=== PATIENT | female | born 1935 | race Caucasian/White ===

== ENCOUNTER 2016-09-01 12:55 | Observation (INO) | payer OTHER ==
[~2016-09-01 12:55] MED LIST: ACETAMINOP650 MG/SU1 RC; ACETAMINOPHEN PO; ACETAMINOPHEN325 MG PO; ALBUTEROL MININEB NEB; ALBUTEROL17 GM INH; ANTIVERT PO; ASPIRIN EC81 M1 PO; ASPIRIN81 M1 PO; AUGMENTIN PO; AZITHROMYCIN250 MG PO; BENZONATATE PO; BUMEX PO; BUMEX2 MG PO; CARTIA XT PO; CETIRIZINE HCL10 MG PO; COLACE PO; COUMADIN; COUMADIN PO; COUMADIN3 MG PO; COUMADIN4 MG PO; COUMADIN5 MG PO; COUMADIN6 MG PO; DARVOCET-N 1001 TAB PO; DIGEX CAPSULE1 CAP PO; DIGITEK PO; DIGOXIN125 MCG PO; DOK100 MG PO; EFFER-K 20 MEQ20 MEQ PO; FERRO-TIME325 MG PO; FERROUS SULFATE PO; GLYCOLAX14 EA PO; GUAIFENESIN LA600 M1 PO; HCTZ; HYDROCHLOROTHIA25 MG PO; HYDROCODON-ACE1 EAC7 PO; HYDROCODONE-APA1 T55 PO; IPRAT-ALBUT 0.5-3 ML IH; IRON SUPPLEMENT1 TAB PO; K-LOR HOSPITAL20 ME1 PO; KCL; KCL PO; KLOR-CON PO; LANOXIN; LANOXIN PO; LASIX; LASIX PO; LEVAQUIN PO; LIPITOR; LIPITOR PO; LIPITOR20 MG PO; LISINOPRIL2.5 MG PO; LOPRESSOR PO; LOPRESSOR100 MG PO; MAGNESIUM200 MG PO; MEDI-MECLIZINE25 M1 PO; METOPROLOL SUC100 MG PO; MILK OF MAGNESIA PO; NASONEX17 GM; NASONEX17 GM NS; NORCO 5/325 TAB1 TAB PO; NORVASC PO; OXYGEN; PHENERGAN PO; POTASSIUM CHLO10 ME1 PO; PRILOSEC PO; PRILOSEC20 M1 PO; PRILOSEC20 MG PO; PROTONIX PO; PROZAC PO; SERTRALINE HCL50 M1 PO; SERTRALINE HCL50 MG PO; SYMBICORT INH; TOPROL XL; TOPROL XL 50 MG50 M1 PO; TOPROL XL 50 MG50 MG PO; TOPROL XL PO; TYLENOL325 M1 PO; WARFARIN SODIUM2 M1 PO; Z-PAK; ZOLOFT50 MG PO; ZYRTEC; ZYRTEC PO
[2016-12-10] MEDS ORDERED: AMIODARONE HCL100 MG PO (00:20)
[2016-12-10] MEDS ORDERED: CYANOCOBAL1000 MCG/M IM (00:20)
[2016-12-10] MEDS ORDERED: METOPROLOL TAR100 MG PO (00:27)
[2016-12-10] MEDS ORDERED: CYANOCOBALAMIN (09:30)
[2016-12-10] MEDS ORDERED: ELIQUIS2.5 MG PO ×2 (12:05→21:38)
[2016-12-10] MEDS ORDERED: TYLENOL EXTRA500 M1 PO (15:18)
[2016-12-10] MEDS ORDERED: BUMEX1 MG PO (15:25)
== END 2016-09-02 08:14 | disposition home or self-care (01) ==
LOC: CSSDAY 12:55 → C2A 12:56
DX: N18.3 Chronic kidney disease, stage 3 (moderate) (principal); D63.1 Anemia in chronic kidney disease; K90.9 Intestinal malabsorption, unspecified
CPT/HCPCS: 36415; 36430; 86850; 86900; 86901; 86905; 86922; 96374; 96376; G0378; J1200; J1940; P9016

== ENCOUNTER → 2016-09-29 | Outpatient (CLI) | payer OTHER ==
[~2016-09-29] MED LIST changes: +AMIODARONE HCL100 MG PO; +AMIODARONE HCL200 MG PO; +AMIODARONE PO; +B-12 COMPL1000 MCG/1 IM; +BUMEX1 MG PO; +CYANOCOBAL1000 MCG/M IM; +CYANOCOBALAMIN; +DOCUSATE SODIU100 MG PO; +ELIQUIS2.5 MG PO; +FOLIC ACID1 MG PO; +HYDROCODON-ACE1 EAC9 PO; +K-DUR20 ME1 PO; +KEFLEX500 MG PO; +MAG-OX 400400 MG PO; +MAGNESIUM400 MG PO; +METOLAZONE2.5 MG PO; +METOPROLOL SUCC25 MG PO; +METOPROLOL TAR100 MG PO; +MUCINEX DM ER1 EACH PO; +NITROGLYGERIN0.4 MG SL; +NITROSTAT0.4 MG SL; +SINGULAIR PO; +TESSALON PERLE100 M1 PO; +TYLENOL EXTRA500 M1 PO; +ZOLOFT100 MG PO; +ZYRTEC10 M1 PO; +ZYRTEC10 M2 PO
== END | disposition home or self-care (01) ==
LOC: CLAB 11:48
DX: D64.9 Anemia, unspecified (principal)
CPT/HCPCS: 36415; 86850; 86870; 86880; 86885; 86886; 86900; 86901; 86905; 86922; 86970; 86976

== ENCOUNTER → 2016-09-30 | Outpatient (CLI) | payer OTHER | END | disposition home or self-care (01) | LOC: CSSDAY 08:11 | DX: N18.3 Chronic kidney disease, stage 3 (moderate) (principal); D63.1 Anemia in chronic kidney disease; K90.9 Intestinal malabsorption, unspecified | CPT/HCPCS: 36430; 86880; J1200; J1940; P9016 ==

== ENCOUNTER → 2016-10-27 | Outpatient (CLI) | payer OTHER | END | disposition home or self-care (01) | LOC: CLAB 12:43 | DX: D64.9 Anemia, unspecified (principal) | CPT/HCPCS: 36415; 86850; 86880; 86885; 86886; 86900; 86901; 86905; 86922; 86970; 86976 ==

== ENCOUNTER → 2016-10-28 | Outpatient (CLI) | payer OTHER | END | disposition home or self-care (01) | LOC: CLAB 08:00 → CSSDAY 08:30 | DX: D64.9 Anemia, unspecified (principal) | CPT/HCPCS: 36430; J1200; J1940; P9016 ==

== ENCOUNTER → 2016-12-01 | Outpatient (CLI) | payer OTHER | END | disposition home or self-care (01) | LOC: CLAB 12:35 | DX: D64.9 Anemia, unspecified (principal) | CPT/HCPCS: 36415; 86850; 86880; 86885; 86886; 86900; 86901; 86922; 86970; 86976 ==

== ENCOUNTER → 2016-12-02 | Outpatient (CLI) | payer OTHER | END | disposition home or self-care (01) | LOC: CSSDAY 08:00 | DX: D64.9 Anemia, unspecified (principal) | CPT/HCPCS: 36430; J1200; J1940; P9016 ==

== ENCOUNTER 2016-12-10 19:08 | Inpatient (IN) | payer OTHER ==
--- NOTE | ~2016-12-10 | CR72 ---
[facility] Service of [facility] & [facility] RADIOLOGY TEXT RESULTS PATIENT: ALVARO GUNN LOCATION: [facility] 574-01 : 34 UNIT #: [id number] AGE: [address]: Byron Holly MD SEX: F ORDER DR: [id number] [facility] [address] [place], [place] [address] [id number] I MR#: [id number] Acc #: [id number] NAME: ALVARO GUNN : 1935 SEX: F STUDY DATE/TIME: 12/15/2016 4:30 UNIT: [facility] ROOM: [facility] STUDY DESCRIPTION: CR Chest Single View Portable Attending Physician: Byron Holly M.D. Ordering Physician: Zion Mccartney M.D. Primary Care Physician: Estrellita Coker M.D. MEDICAL IMAGING REPORT This report is preliminary unless electronic signature is present EXAM Single view chest INDICATIONS Pulmonary embolus. Volume overload for 5 days. COPD. COMPARISON Single portable AP view of the chest compared with 12/14/2016. FINDINGS The right PICC remains in place. Heart and mediastinal contours are unchanged. Patient has prior heart valve replacements. There is interstitial edema and bilateral pleural effusions. These are unchanged. No pneumothorax. IMPRESSION No interval change. Dictated by... Umberto Zapata M.D. THIS IS AN ELECTRONICALLY VERIFIED REPORT Umberto Zapata M.D. at 12/15/2016 11:40 PM ANURADHA/millie TD: 12/15/2016 11:51 JOB #: [id number] MEDICAL IMAGING REPORT Page 1 of 1 COPY
--- NOTE | ~2016-12-10 | CO ---
Unit #: [id number] #: [id number] Patient: ALVARO GUNN [id number] [facility] [address] [place], [place] [address] [id number] I MR#: [id number] NAME: ALVARO GUNN ROOM: [facility] Age: 81 Sex: F Admission Date: 12/10/2016 : 1935 Attending Physician: Byron Holly M.D. Primary Care Physician: Estrellita Coker M.D. Consultation Date: 12/11/2016 CONSULTATION REPORT REASON FOR CONSULTATION CHF. HISTORY OF PRESENT ILLNESS The patient is an 81-year-old female who is known to Dr. Brandon. In July 2015 she had an EF of 55% to 60%, flattened septum and her right ventricle was dilated. Positive ring in the mitral position. Moderate TR with an RSVP of 30 to 40 mmHg. Her aortic valve was calcified with mild . Also in July of 2015 patient was diagnosed with afib and sick sinus syndrome and had a [employer] Neil single chamber permanent pacemaker placed. She is currently anticoagulated on Eliquis. In 2010 she had coronary artery disease with a history of a CABG, MATOS to LAD, SVG to PDA and mitral and tricuspid valve repair. In 2013 patient had a normal ejection fraction of 62%. Additional past medical history includes hypertension, hyperlipidemia, COPD with O2 dependency, AVMs with GI bleed, chronic kidney disease, gout, GERD and anemia with multiple blood transfusions. She is a nonsmoker. Yesterday patient presented for an outpatient colonoscopy. In the PACU she became very short of breath and hypoxic with an oxygenation of 83%. She was found to be volume overloaded. She was moved to the ER for admission. On workup she was found to have a BNP of 1702. Chest x-ray was consistent with pulmonary edema. Hemoglobin 7 and hematocrit 23. Patient and the patient's family report that she has had multiple blood transfusions since June of 2016. They report that she has had 17 transfusions. Cardiology has been consulted for congestive heart failure. Patient currently is on IV Bumex and receiving two units of packed red blood cells. Troponin is 0.04 and EKG shows an accelerated junctional rhythm. PAST MEDICAL HISTORY 1. Echo from July of 2015, EF 55% to 60% with flattened septum and dilated right ventricle. Positive ring in the mitral position. Moderate TR with an RSVP of 30 to 40 mmHg. Aortic valve is calcified with mild . 2. In July of 2015 she had a single chamber [employer]. Neil permanent pacemaker placed for sick sinus syndrome. 3. Coronary artery disease with a history of CABG in 2010, MATOS to LAD, SVG to PDA and mitral and tricuspid valve repair. 4. In 2013 normal stress test with an EF of 62%. 5. Hypertension. 6. Hyperlipidemia. 7. Obstructive sleep apnea. 8. COPD. Unit #: [id number] #: [id number] Patient: ALVARO GUNN 9. Chronic O2 dependency. 10. History of AVMs with GI bleed. 11. GERD. 12. Chronic kidney disease. 13. Gout. 14. She is a nonsmoker. 15. Anemia with multiple blood transfusions. PAST SURGICAL HISTORY 1. CABG. 2. Cardiac cath. 3. Gastric surgery. 4. Cholecystectomy. 5. Hysterectomy. 6. Bilateral total knee arthroplasty. 7. History of permanent pacemaker placement. 8. History of diagnostic thoracentesis. 9. History of tonsillectomy. ALLERGIES Morphine. HOME MEDICATIONS 1. Eliquis 2.5 mg p.o. b.i.d. 2. Hydrocodone and acetaminophen 5/325 mg one tab p.o. q.6 h. p.r.n. pain. 3. Metolazone 2.5 mg p.o. q.72 h. 4. Aspirin 81 mg p.o. daily. 5. Lipitor 20 mg p.o. q.h.s. 6. Tessalon perles 100 mg p.o. t.i.d. p.r.n. cough. 7. Bumex 2 mg p.o. b.i.d. 8. Zyrtec 10 mg p.o. daily. 9. Vitamin B12 IM injection monthly. 10. Colace 100 mg p.o. b.i.d. p.r.n. constipation. 11. Ferrous sulfate 325 mg p.o. b.i.d. 12. Folic acid 1 mg p.o. daily. 13. Magnesium 400 mg p.o. daily. 14. Metoprolol succinate 25 mg p.o. b.i.d. 15. Nasonex two sprays each naris daily. 16. Singulair 10 mg p.o. q.a.m. 17. Nitroglycerin 0.4 mg sublingual q.5 minutes p.r.n. chest pain. 18. Mucinex ER 300/30 one tab p.o. b.i.d. 19. Protonix 40 mg p.o. daily. 20. K-Dur 20 mEq p.o. b.i.d. 21. Zoloft 50 mg p.o. daily. FAMILY HISTORY Family history is positive for CT and hypertension. SOCIAL HISTORY Patent denies tobacco, alcohol or illicit drug abuse. REVIEW OF SYSTEMS A 10-point review of systems has been done and is otherwise negative except as indicated in the HPI. PHYSICAL EXAMINATION GENERAL: Patient is awake, alert, in no acute distress. Unit #: [id number] #: [id number] Patient: ALVARO GUNN VITAL SIGNS: Temperature 98 degrees Fahrenheit, heart rate 84, respirations 19, blood pressure 134/44. She is oxygenating 95%. HEENT: Head is atraumatic and normocephalic. Pupils equal, round and reactive. Extraocular movements are intact. No drainage from ears or nares. NECK: Supple. Trachea is midline. Normal carotid upstrokes. No thyromegaly or lymphadenopathy is appreciated. CHEST: Lungs have crackles bilaterally and no wheezes. CARDIOVASCULAR: S1, S2. Regular rate and rhythm. No murmurs, rubs or gallops appreciated. ABDOMEN: Soft, nontender, distended. Bowel sounds are positive in all four quadrants. SKIN: The skin appears to be warm, dry and intact without any unusual rashes or lesions. EXTREMITIES: No clubbing. Bilateral lower extremities show positive edema. NEUROLOGIC: Patient is alert and oriented x3. She is pleasant and conversant. No focal deficits. DIAGNOSTIC STUDIES IMAGING: Chest x-ray shows finding consistent with pulmonary edema. LABORATORY RESULTS: White blood cells 4.3, hemoglobin 7.1, hematocrit 23.9, platelets 103, sodium 139, potassium 3.6, chloride 16, CO2 33, BUN 33, creatinine 1.3, glucose 71, magnesium 2, cholesterol 102, triglycerides 73, LDL 58, HDL 29, troponin is less than 0.04. ASSESSMENT 1. Aofrb-ec-peijwnb diastolic congestive heart failure. 2. Volume overload. 3. Anemia requiring multiple blood transfusions. 4. Hypertension. 5. Hyperlipidemia. 6. Coronary artery disease with history of coronary artery bypass graft in 2010 with left internal mammary artery to left anterior descending, saphenous vein graft to posterior descending artery with mitral and tricuspid valve repair. 7. Hypertension. 8. Hyperlipidemia. 9. Chronic oxygen dependency with chronic obstructive pulmonary disease. PLAN At his time Anastasiia has been on hold secondary to the patient does need a colonoscopy. Her aspirin has also been discontinued. Will change Bumex to 2 mg IV b.i.d. starting in the morning. Patient is currently on Bumex IV q.8 h. She will need a BMP and mag in the morning. Will do strict Is and Os and daily weight on the patient. Will obtain a recent 2D echocardiogram and we will obtain a chest x-ray. Further recommendations will be per Dr. Day. Dictated by... Sade Trent A.P.R.N. for Nelson Day M.D. AM/cf Unit #: [id number] #: [id number] Patient: ALVARO GUNN TD: 12/11/2016 18:20 JOB #: [id number] CONSULTATION REPORT Page 1 of 1 X Sade Trent APRN CONSULTATION REPORT
--- NOTE | ~2016-12-10 | CR72 ---
[facility] A Service of [facility] RADIOLOGY TEXT RESULTS PATIENT: ALVARO GUNN LOCATION: [facility] 574-01 : 34 UNIT #: [id number] AGE: [address]: Byron Holly MD SEX: F ORDER DR: [id number] [facility] [address] [place], [place] [address] [id number] I MR#: [id number] Acc #: [id number] NAME: ALVARO GUNN : 1935 SEX: F STUDY DATE/TIME: 12/10/2016 19:37 UNIT: [facility] ROOM: [facility] STUDY DESCRIPTION: CR Chest Single View Portable Attending Physician: Byron Holly M.D. Ordering Physician: Ronnell Charles M.D. Primary Care Physician: Estrellita Coker M.D. MEDICAL IMAGING REPORT This report is preliminary unless electronic signature is present EXAM Portable AP view of the chest COMPARISON September 10, 2016, June 22, 2016 INDICATION 81-year-old female with dyspnea since yesterday. FINDINGS There are stable fractures of multiple superior sternotomy wires. There is no evidence of sternotomy dehiscence. Changes of CABG are noted. Cardiac valve replacements again noted, likely tricuspid and mitral. Left chest pacemaker device appears stable without evidence of complication. Stable marked cardiomegaly. There are increased bibasilar lung opacities with cephalization of pulmonary vasculature and diffuse interstitial and alveolar opacities that are increased throughout the lungs. Findings would seem to reflect pulmonary edema. There are small bilateral pleural effusions. No evidence of pneumothorax. IMPRESSION 1. Stable marked cardiomegaly with increased diffuse lung opacities favoring pulmonary edema. Correlation to exclude signs of pneumonia recommended. Small bilateral pleural effusions, left greater than right. 2. Changes of CABG and cardiac valve replacements, likely tricuspid and mitral. Dictated by... Aldo Garcia M.D. THIS IS AN ELECTRONICALLY VERIFIED REPORT [facility] A Service of [facility] & [facility] RADIOLOGY TEXT RESULTS PATIENT: ALVARO GUNN LOCATION: [facility] 574-01 : 34 UNIT #: [id number] AGE: [address]: Byron Holly MD SEX: F ORDER DR: Aldo Garcia M.D. at 12/12/2016 10:39 PM Black TD: 12/11/2016 10:22 JOB #: [id number] MEDICAL IMAGING REPORT Page 1 of 1 COPY
--- NOTE | ~2016-12-10 | CO ---
Unit #: [id number] #: [id number] Patient: ALVARO GUNN [id number] [address] [address] [id number] I MR#: [id number] NAME: ALVARO GUNN ROOM: 574 Age: 81 Sex: F Admission Date: 12/10/2016 : 1935 Attending Physician: Byron Holly M.D. Primary Care Physician: Estrellita Coker M.D. Consultation Date: 12/17/2016 CONSULTATION REPORT REASON FOR CONSULTATION Acute on chronic kidney disease, stage 3. HISTORY OF PRESENT ILLNESS The patient is an 81-year-old white female, with history of chronic kidney disease stage [address] Ac with a baseline creatinine of 1.1 with a history of congestive heart failure and sick sinus syndrome with history of chronic anemia requiring multiple blood transfusions this year. The patient was actually here for outpatient colonoscopy and she became short of breath. Since then, the colonoscopy has been put on hold, she has been treated for congestive heart failure. Cardiology has been following with increase in her diuretics. Currently, she denies any shortness of breath. Her labs were reviewed. Her creatinine is elevated at 1.8 today. PAST MEDICAL HISTORY Significant for CKD stage 3, congestive heart failure, anemia, sick sinus syndrome. PAST SURGICAL HISTORY Includes CABG, mitral valve repair, knee replacement, and pacemaker placement. FAMILY HISTORY Noncontributory. SOCIAL HISTORY No tobacco. No alcohol. MEDICATIONS Home medications are reviewed as well as inpatient medications, see current list. REVIEW OF SYSTEMS A 12-point review of systems currently complete and negative for everything except positive for edema. PHYSICAL EXAMINATION VITAL SIGNS: Blood pressure is 120/63, heart rate 71, respirations 16, temperature is 97.6. GENERAL: She is a well-nourished white female. HEENT: Shows no JVD. No LAD. CARDIOVASCULAR: Regular rate and rhythm without murmurs, rubs, or gallops. Unit #: [id number] #: [id number] Patient: ALVARO GUNN LUNGS: Clear to auscultation bilaterally. ABDOMEN: Soft, nontender, nondistended. EXTREMITIES: 2+ lower extremity edema. NEURO: Grossly intact. PSYCHIATRIC: She is alert and oriented x3. DIAGNOSTIC STUDIES LABORATORY RESULTS: Sodium of 139, potassium 4.3, chloride 88, bicarb 41, BUN 49, creatinine 1.8, calcium 8.9. White count is 3.8, hemoglobin 8.4, platelets are 108. ASSESSMENT AND PLAN 1. Acute on chronic kidney disease, stage 3 with baseline creatinine of 1.1 up to 1.8 today, also with metabolic alkalosis most likely acute renal failure due to over-diuresis. She has been on IV Bumex which she has been changed to p.o. Bumex today. She is still on Zaroxolyn. We will discontinue her Zaroxolyn. We will continue to monitor renal function. If it worsens, we need to discontinue diuretics altogether. 2. Congestive heart failure. Currently denies any shortness of breath. Lungs are clear. She does have some lower extremity edema which is likely chronic. We will monitor closely. 3. Anemia. Hemoglobin is low at 8.4. She was scheduled to have colonoscopy which is now on hold. We will continue to monitor. 4. Sick sinus syndrome, status post pacemaker placement. Cardiology is following. Dictated by... Haylee Mendez M.D. DANG/lexi TD: 12/20/2016 00:27 JOB #: [id number] CONSULTATION REPORT Page 1 of 1 X Haylee Mendez MD CONSULTATION REPORT
--- NOTE | ~2016-12-10 | CO ---
Unit #: [id number] #: [id number] Patient: ALVARO GUNN [id number] [address] [address] [id number] I MR#: [id number] NAME: ALVARO GUNN ROOM: 574 Age: 81 Sex: F Admission Date: 12/10/2016 : 1935 Attending Physician: Byron Holly M.D. Primary Care Physician: Estrellita Coker M.D. CONSULTATION REPORT REASON FOR CONSULTATION Respiratory failure. CHIEF COMPLAINT Shortness of breath. 81-year-old female with a past medical history of congestive heart failure, anemia, multiple transfusions, history of paroxysmal atrial fibrillation, status post permanent pacemaker, CABG, osteoarthritis, gastroesophageal reflux disease, anxiety/depression, presents with a complaint of outpatient colonoscopy and was hypoxic. I am seeing the patient at bedside. Currently on Oxymizer complaining of shortness of breath. Denies any chest pain. No nausea, vomiting, diarrhea. No other complaints. PAST MEDICAL HISTORY As described above. SOCIAL HISTORY Ex-smoker. No alcohol, no drug use. FAMILY HISTORY None as per record. SURGICAL HISTORY 1. CABG. 2. Cardiac cath. 3. Cholecystectomy. 4. Hysterectomy. 5. Multiple thoracenteses. 6. Tonsillectomy. 7. History of permanent pacemaker placement. MEDICATIONS 1. Eliquis. 2. Metolazone. 3. Hydrocodone. 4. Aspirin. 5. Lipitor. 6. Bumex. 7. Cetirizine. 8. Colace. 9. Metoprolol. 10. Nasonex. Unit #: [id number] #: [id number] Patient: ALVARO GUNN 11. Nitroglycerin. 12. Mucinex. PHYSICAL EXAMINATION VITAL SIGNS: Temperature 98, pulse 87, respirations 12, blood pressure 130/70. NEUROLOGICAL: Awake, alert, oriented. No neuro deficit. HEENT: PERRLA. NECK: Supple. No JVD. CHEST: Bilateral air entry, bilateral mild rhonchi. GI: Nontender, soft. Bowel sounds positive. EXTREMITIES: Positive edema. DIAGNOSTIC STUDIES Labs and imaging have been reviewed. ASSESSMENT AND PLAN 1. Acute hypoxic respiratory failure. 2. Acute exacerbation of congestive heart failure. 3. Anemia. 4. History of paroxysmal atrial fibrillation. 5. Coronary artery disease. 6. Questionable chronic obstructive pulmonary disease. Plan is to continue patient on oxygen and bronchodilator, diuretics as per cardiology. GI and DVT prophylaxis. Noncontrast CT of the chest. Monitor hemoglobin and hematocrit. Transfuse as needed. The patient will be closely monitored. Please see orders for detailed plan. Thank you very much for this consultation. We will continue to follow the patient. Dictated by... Fabio Reyes/anastasia TD: 12/13/2016 05:33 JOB #: [id number] CONSULTATION REPORT Page 1 of 1 X Zion Mccartney MD CONSULTATION REPORT
--- NOTE | ~2016-12-10 | CR63 ---
[facility] A Service of [facility] RADIOLOGY TEXT RESULTS PATIENT: ALVARO GUNN LOCATION: [facility] 574-01 : 34 UNIT #: [id number] AGE: [address]: Byron Holly MD SEX: F ORDER DR: [id number] [facility] [address] [place], [place] [address] [id number] I MR#: [id number] Acc #: [id number] NAME: ALVARO GUNN : 1935 SEX: F STUDY DATE/TIME: 12/13/2016706 UNIT: [facility] ROOM: 4 STUDY DESCRIPTION: CR Chest 2 View Attending Physician: Byron Holly M.D. Ordering Physician: Byron Holly M.D. Primary Care Physician: Estrellita Coker M.D. MEDICAL IMAGING REPORT This report is preliminary unless electronic signature is present EXAM Chest, 2 views, 12/13/2016, 0707 hours. CLINICAL HISTORY Shortness of air since 12/10/2016. History of hypertension and CHF. COMPARISON CT chest and portable chest film, 12/12/2016. FINDINGS Upright PA and lateral views of the chest demonstrate median sternotomy change with valve replacement. There is stable cardiomegaly, tortuous aorta. There is pulmonary venous distension with bilateral parenchymal changes, likely representing edema appearing ivpnar-fi-rztoiajv improved from 12/12/2016. There are bilateral pleural effusions, left greater than right, which appear increased on the left and may be decreased on the right. IMPRESSION Stable cardiomegaly, pulmonary venous distension. There are bilateral parenchymal changes in the lungs which are slightly improved, likely improving edema. There is slight increase in left pleural effusion and decrease in right pleural effusion. Dictated by... Jeannine Morales M.D. THIS IS AN ELECTRONICALLY VERIFIED REPORT Jeannine Morales M.D. at 12/13/2016 6:05 PM CAROLM/mango [facility] A Service of [facility] RADIOLOGY TEXT RESULTS PATIENT: ALVARO GUNN LOCATION: [facility] 574-01 : 34 UNIT #: [id number] AGE: [address]: Byron Holly MD SEX: F ORDER DR: TD: 12/13/2016 17:26 JOB #: [id number] MEDICAL IMAGING REPORT Page 1 of 1 COPY
--- NOTE | ~2016-12-10 | CR63 ---
[facility] A Service of [facility] RADIOLOGY TEXT RESULTS PATIENT: ALVARO GUNN LOCATION: [facility] 574-01 : 34 UNIT #: [id number] AGE: [address]: Byron Holly MD SEX: F ORDER DR: [id number] [facility] [address] [place], [place] [address] [id number] I MR#: [id number] Acc #: [id number] NAME: ALVARO GUNN : 1935 SEX: F STUDY DATE/TIME: 12/16/2016 22:58 UNIT: [facility] ROOM: [facility] STUDY DESCRIPTION: CR Chest 2 View Attending Physician: Byron Holly M.D. Ordering Physician: Byron Holly M.D. Primary Care Physician: Estrellita Coker M.D. MEDICAL IMAGING REPORT This report is preliminary unless electronic signature is present EXAM AP and lateral chest HISTORY Shortness of air, weakness and CHF for 6 days. FINDINGS Two views of the chest demonstrate small to moderate-sized bilateral pleural effusions with bibasilar infiltrates or atelectasis, left greater than right. Partial clearing of the right base compared to yesterday. Sternotomy with CABG markers and cardiac valve prostheses. Slightly decreased interstitial infiltrates in the mid lungs bilaterally. IMPRESSION 1. Persistent cardiac enlargement and mild vascular congestion. 2. Stable small bilateral pleural effusions. 3. Bibasilar infiltrates or atelectasis, left greater than right. Partial clearing of the left base compared to yesterday. 4. Partial clearing of bilateral interstitial infiltrates in the mid lungs. Dictated by... Red Leach M.D. THIS IS AN ELECTRONICALLY VERIFIED REPORT Red Leach M.D. at 12/17/2016 11:27 PM DFL/renny TD: 12/17/2016 03:31 JOB #: [id number] [facility] A Service of [facility] RADIOLOGY TEXT RESULTS PATIENT: ALVARO GUNN LOCATION: [facility] 574-01 : 34 UNIT #: [id number] AGE: [address]: Byron Holly MD SEX: F ORDER DR: MEDICAL IMAGING REPORT Page 1 of 1 COPY
--- NOTE | ~2016-12-10 | EKG ---
PATIENT: ALVARO GUNN UNIT #: [id number] Ventricular Rate: 71 BPM Atrial Rate: 71 BPM P-R Interval: 328 ms QRS Duration: 106 ms Q-T Interval: 454 ms QTC Calculation(Bezet): 493 ms Calculated R Vancourt: 122 degrees Calculated T Vancourt: 7 degrees Diagnosis Line: Junctional rhythm Diagnosis Line: Left posterior fascicular block Diagnosis Line: T wave abnormality, consider anterolateral Diagnosis Line: ischemia Diagnosis Line: Prolonged QT Diagnosis Line: Abnormal ECG Diagnosis Line: When compared with ECG of 11-DEC-2016 12:18, Diagnosis Line: (unconfirmed) Diagnosis Line: No significant change was found Diagnosis Line: Confirmed by MIKA SHERWOOD MD ([id number]) on 12/15/2016 Diagnosis Line: 2:54:54 PM INTERPRETING MD: PRESLEY CRUZ
--- NOTE | ~2016-12-10 | DS ---
Unit #: [id number] #: [id number] Patient: ALVARO GUNN [id number] [address] [place], [place] [address] [id number] I MR#: [id number] NAME: ALVARO GUNN ROOM: 574 Age: 81 Sex: F Admission Date: 12/10/2016 : 1935 Discharge Date: 12/18/2016 Attending Physician: Byron Holly M.D. Primary Care Physician: Estrellita Coker M.D. DISCHARGE SUMMARY REASON FOR ADMISSION Dyspnea, post colonoscopy. HISTORY OF PRESENT ILLNESS/HOSPITAL COURSE The patient is an 81-year-old female with underlying history of chronic diastolic heart failure; anemia with prior history of multiple transfusions; questionable history of myelodysplastic syndrome; prior history of atrial fibrillation, paroxysmal; pacemaker placement; hypertension; chronic anticoagulation; coronary artery disease, prior CABG history; who presented secondary to dyspnea post colonoscopy. She has had numerous hospital admissions secondary to multiple transfusion requirements. She was noted to initially have an elevated BNP of 1702. Chest x-ray was consistent with pulmonary edema. Initial hemoglobin was 7. Consultation was placed to Cardiology Services initially for management of acute on chronic diastolic heart failure. Throughout hospital course, the patient received IV diuresis. She did diurese well. Unfortunately toward the latter part of her stay, her creatinine level slowly started rising; at one point time, it peaked to 1.8. Her usual baseline, I believe, is closer to 1.2. This, subsequently, prompted a consultation to [facility]. [facility], who saw and evaluated the patient this morning. The patient's creatinine currently stands at 1.8. She has been transitioned off IV diuresis and now into p.o. diuresis. She, otherwise, feels well. She states that she wishes to go home. She does have a prior history of severe tricuspid regurgitation, severe pulmonary hypertension. Both were managed appropriately while here. Consultation had also been placed to [facility] initially. Discussion was made for possible upper and lower GI endoscopy for evaluation; however, the patient stated that she did not wish to have these procedures and therefore, decision was made against further evaluation with scopes. Today, at time of discharge, the patient's hemoglobin currently stands at 8.4, likely representing her baseline. Her BMP shows a creatinine of 1.7, likely her baseline ranges between 1.2 to 1.8. Unit #: [id number] #: [id number] Patient: ALVARO GUNN Pulmonary Services, Dr. Hopper and associates did see and evaluate the patient initially secondary to ICU placement. She has shown improvement. Initially, she was placed on IV antibiotics, but consideration was strongly given to likely effusions as cause of underlying dyspnea and less likely, felt to be secondary to acute infective process. At this point in time, the patient is clinically stable for discharge home. She is well supported at home and has numerous family members who participate in her care. She will be discharged with the understanding. She will follow up with Dr. Coker, her family physician, in approximately 7 days for repeat BMP. Her Zaroxolyn will be discontinued at time of discharge. Her Bumex will be continued as is for now, this may be followed as an outpatient. All plans to have been discussed with the patient as well as her daughter present at bedside. The patient is also to follow up with Dr. Nav Monsalve of Hematology Services for ongoing anemia/myelodysplastic syndrome. FINAL DISCHARGE DIAGNOSES 1. Dyspnea, multifactorial in origin. 2. Acute on chronic diastolic heart failure. 3. Acute on chronic respiratory failure. 4. Underlying pulmonary hypertension. 5. Bilateral pleural effusions, likely secondary to diastolic heart failure exacerbation. 6. Hyperlipidemia. 7. Acute on chronic kidney disease, stage 3. 8. Prior history of sick sinus syndrome with associated pacemaker placement. 9. Anemia with recurrent need for blood transfusions, likely multifactorial in origin, secondary to myelodysplastic syndrome, chronic kidney disease as well as possible gastrointestinal loss, however, this seems very unlikely. 10. Valvular heart disease. 11. Anxiety/depression. 12. Failure to thrive. FINAL DISCHARGE MEDICATIONS Mag-Ox 400 mg p.o. b.i.d., Nasonex 2 sprays each nostril daily, Zoloft 400 mg p.o. q.a.m., Zyrtec 10 mg p.o. daily, Tessalon Perles 100 mg p.o. q.8 p.r.n., Toprol-XL 25 mg p.o. b.i.d., Colace 100 mg p.o. b.i.d., Bumex 2 mg p.o. b.i.d., Lipitor 20 mg p.o. q.h.s., ferrous sulfate 325 mg p.o. b.i.d., Singulair 10 mg p.o. at bedtime, [place] 5/325 one tablet p.o. q.6 p.r.n., note this is a home medication, no new prescription given. Protonix 40 mg p.o. daily, potassium chloride 20 mEq p.o. daily, sublingual nitroglycerin as directed, vitamin B12 of 1000 mcg IM weekly, folic acid 1 mg p.o. daily. Please note, the patient's aspirin as well as Eliquis have been discontinued at time of discharge. Also note, the patient was instructed to follow up with her PCP for repeat BMP as well as CBC within seven days post discharge. We will also have Home Health Services to follow her as well. Overall long-term prognosis of this patient is guarded. This was discussed with the patient's family member secondary to advanced age as well as associated comorbid conditions. The chance of this patient being readmitted is of high probability and overall, her long-term prognosis is guarded at this point. DNR status was recommended; however, the patient as well as the patient's daughters and family members have refused. Dictated by... Unit #: [id number] #: [id number] Patient: LUIS AALVARO M.D. ISN/lexi TD: 12/20/2016 09:08 JOB #: [id number] DISCHARGE SUMMARY Page 1 of 1 X Byron Holly MD X DISCHARGE SUMMARY
--- NOTE | ~2016-12-10 | HP ---
Unit #: [id number] #: [id number] Patient: ALVARO GUNN [id number] [address] [place], [place] [address] [id number] I MR#: [id number] NAME: ALVARO GUNN ROOM: [facility] Age: 81 Sex: F Admission Date: 12/10/2016 : 1935 Attending Physician: Byron Holly M.D. Primary Care Physician: Estrellita Coker M.D. HISTORY AND PHYSICAL CHIEF COMPLAINT Patient came here for outpatient colonoscopy, became short of breath, hypoxic, sent to the ER for evaluation. DISCUSSION This is an 81-year-old female with history of past medical history of chronic diastolic CHF, anemia, multiple transfusions, history of paroxysmal atrial fibrillation status post permanent pacemaker, chronic anticoagulation, hypertension, coronary artery disease with previous CABG, coronary artery disease, osteoarthritis, GERD, chronic respiratory failure on oxygen, chronic pain, anxiety, depression, dyslipidemia, history of gout. As per family, she had been having anemia, multiple transfusions since June 2016. She was evaluated by hem/onc, occult positive stool and anemia. She had a prep for colonoscopy and she presented today for colonoscopy. In the PACU, she came short of breath and she became hypoxia, oxygen 83%. She was found to be volume overloaded. Eventually, she was sent to the emergency room for admission. On workup, she was found to have elevated BNP 1702. Chest x-ray consistent with pulmonary edema. Hemoglobin 7, hematocrit 23 and being admitted for further workup and evaluation. As per family, she had been having some anemia but she denies. Family noting nausea, vomiting. No dark stool or bright red blood per rectum recently. Denied chest pain. Denies nausea, vomiting. PAST MEDICAL HISTORY 1. History of chronic diastolic CHF. 2. History of anemia with multiple transfusions. 3. Iron-deficiency anemia. 4. History of paroxysmal atrial fibrillation, status post permanent pacemaker on chronic anticoagulation. 5. Hypertension. 6. History of coronary artery disease, status post CABG. 7. Also, status post mitral valve and tricuspid valve repair. 8. History of nonsustained ventricular tachycardia. 9. History of anxiety/depression. 10. Chronic kidney disease. 11. Osteoarthritis. 12. GERD. 13. Dyslipidemia. 14. History of gout. PAST SURGICAL HISTORY 1. History of CABG. 2. History of cardioversion in the past in 2011. 3. History of status post tricuspid and mitral valve repair with x2 Unit #: [id number] #: [id number] Patient: ALVARO GUNN vessel CABG. 4. History of cardiac cath. 5. Gastric surgery. 6. Cholecystectomy. 7. Hysterectomy. 8. Bilateral knee total knee arthroplasty. 9. History of permanent pacemaker placement. 10. History of thoracocentesis, diagnostic. 11. History of tonsillectomy. FAMILY HISTORY ID and Hypertension in the family. SOCIAL HISTORY She denies alcohol. She denies smoking. No illicit drug use. MEDICATIONS Medications from home is the followin. Eliquis 2.5 mg twice a day. 2. Metolazone 2.5 mg every 72 hours. 3. Hydrocodone 5/325 one tablet q.6 hours p.r.n. 4. Aspirin 81 mg daily. 5. Atorvastatin 20 mg daily. 6. Benzonatate 10 mg three times daily. 7. Bumex 2 mg twice a day. 8. Cetirizine 10 mg daily. 9. Cyanocobalamin 1000 mcg injection monthly. 10. Colace 100 mg twice a day. 11. Ferrous sulfate 325 one tablet twice a day. 12. Folic acid 1 mg daily. 13. Magnesium oxide 400 mg twice a day. 14. Metoprolol succinate 25 mg daily. 15. Nasonex two sprays daily. 16. Singulair 10 mg daily. 17. Nitroglycerin 0.4 mg sublingual p.r.n. 18. Mucinex 600 mg b.i.d. REVIEW OF SYSTEMS CONSTITUTIONAL: She reports fatigue, tiredness, weakness. ENT: No sinus pain. CARDIOVASCULAR: No chest pain. No diaphoresis. Positive for shortness of breath since night. RESPIRATORY: No cough. No wheezing. GASTROINTESTINAL: No nausea and vomiting. No diarrhea. No constipation. Denies any bright red blood per rectum. GENITOURINARY: No dysuria. No urgency. MUSCULOSKELETAL: She reports chronic pain. NEUROLOGIC: Weakness but no seizures. No loss of consciousness. PSYCHIATRIC: Normal mood and affect. PHYSICAL EXAMINATION GENERAL: Elderly female lying in the bed comfortably, currently not in any distress. VITAL SIGNS: Her current vitals are following: Temperature 98.1, heart rate 88, respiratory rate 27, blood pressure 121/87. GENERAL: She is alert, awake, oriented x3. Not in any distress. Currently on Oxymizer. NECK: Supple. No JVD. No thyromegaly. Unit #: [id number] #: [id number] Patient: ALVARO GUNN LUNGS: Bilateral basal crackles positive. No wheezing. HEART: S1, S2. Regular rate and rhythm. A systolic murmur positive. ABDOMEN: Soft, nontender, nondistended. Bowel sounds positive. EXTREMITIES: (1) edema positive. NEUROLOGIC: Alert, awake. (2) cranial nerves II-XII. No focal neurologic deficit. SKIN: No rash. PSYCHIATRIC: Normal mood and affect. DIAGNOSTIC STUDIES LABORATORY: Laboratory workup is following: Troponin less than 0.05. CBC: White count 3.5, hemoglobin 7.2, hematocrit 23.9, platelets 152,000. BNP 1702. INR is 1.2. Chemistries: Sodium 138, potassium 3.4, chloride 96, glucose 80, BUN 34, creatinine 1.2. LFTs within normal limits. IMAGING: Chest x-ray shows pulmonary edema, some mild bilateral pleural effusions. ASSESSMENT AND PLAN 1. Acute exacerbation of acute on chronic diastolic congestive heart failure: Will admit the patient into intensive care unit. Keep oxygen to keep saturations more than 90. IV Bumex. 2. Symptomatic anemia: Will transfuse 2 units of packed red blood cells. Clear liquid diet. NPO from midnight. Surgery to see in the morning, possible scope in the morning. 3. History of paroxysmal atrial fibrillation, status post permanent pacemaker on chronic anticoagulation. Will hold Eliquis. 4. History of hypertension. 5. Coronary artery disease, previous coronary artery bypass grafting/status post mitral valve repair and tricuspid valve repair/nonsustained ventricular tachycardia in the past. 6. Chronic kidney disease. 7. Osteoarthritis/chronic pain. 8. Continue oxycodone. 9. History of gastroesophageal reflux disease on Protonix. 10. Chronic respiratory failure, oxygen at home. 11. Chronic pain. 12. Anxiety and depression. 13. History of dyslipidemia. 14. History of gout. 15. Deep venous thrombosis prophylaxis: Will place the patient on sequential compression devices. Dictated by Jennifer Kiser M.D. NADIA/myles TD: 12/11/2016 09:45 JOB #: [id number] Unit #: [id number] #: [id number] Patient: LUIS AALVARO HISTORY AND PHYSICAL Page 1 of 1 X X HISTORY AND PHYSICAL
--- NOTE | ~2016-12-10 | CR72 ---
[facility] A Service of [facility] RADIOLOGY TEXT RESULTS PATIENT: ALVARO GUNN LOCATION: [address] : 34 UNIT #: [id number] AGE: [address]: Byron Holly MD SEX: F ORDER DR: [id number] [facility] [address]. [place], [place] [address] [id number] I MR#: [id number] Acc #: [id number] NAME: ALVARO GUNN : 1935 SEX: F STUDY DATE/TIME: 12/11/2016 12:31 UNIT: [facility] ROOM: [facility] STUDY DESCRIPTION: CR Chest Single View Portable Attending Physician: Byron Holly M.D. Ordering Physician: Nelson Day M.D. Primary Care Physician: Estrellita Coker M.D. MEDICAL IMAGING REPORT This report is preliminary unless electronic signature is present EXAM Frontal chest, 12/11/2016. INDICATION 81-year-old female with congestive heart failure. Short of air. Symptoms 2-3 weeks. TECHNIQUE Frontal chest compared with 12/10/2016. FINDINGS Right-sided PICC line unchanged in this patient status post median sternotomy and heart valve replacement. Left-sided pacemaker present. The heart is enlarged. Slight improvement in vascular congestion and interstitial edema. Persistent bilateral effusions with compressive atelectasis or pneumonia in the lung bases. No pneumothorax. IMPRESSION 1. Cardiomegaly. Bilateral effusions with atelectasis or pneumonia in the lung bases. No pneumothorax. 2. Slight improvement in vascular congestion and interstitial edema. Dictated by... Chapito Ritchie M.D. THIS IS AN ELECTRONICALLY VERIFIED REPORT Chapito Ritchie M.D. at 12/12/2016 8:47 AM PATRICE/mango TD: 12/11/2016 22:44 JOB #: [id number] [facility] A Service of [facility] RADIOLOGY TEXT RESULTS PATIENT: ALVARO GUNN LOCATION: [address] : 34 UNIT #: [id number] AGE: [address]: Byron Holly MD SEX: F ORDER DR: MEDICAL IMAGING REPORT Page 1 of 1 COPY
--- NOTE | ~2016-12-10 | CR72 ---
[facility] A Service of [facility] RADIOLOGY TEXT RESULTS PATIENT: ALVARO GUNN LOCATION: [address] : 34 UNIT #: [id number] AGE: [address]: Byron Holly MD SEX: F ORDER DR: [id number] [facility] [address] [facility]. [place], [place] [address] [id number] I MR#: [id number] Acc #: [id number] NAME: ALVARO GUNN : 1935 SEX: F STUDY DATE/TIME: 12/10/2016 23:17 UNIT: [facility] ROOM: [facility] STUDY DESCRIPTION: CR Chest Single View Portable Attending Physician: Byron Holly M.D. Ordering Physician: Jennifer Kiesr M.D. Primary Care Physician: Estrellita Coker M.D. MEDICAL IMAGING REPORT This report is preliminary unless electronic signature is present EXAM Single view chest INDICATIONS PICC placement. TECHNIQUE Single portable AP view of the chest. COMPARISON 12/10/2016 FINDINGS The right PICC terminates over the SVC. Heart is enlarged. Patient is status post CABG and heart valve replacement. There is moderate interstitial edema and bilateral pleural effusions. No pneumothorax. IMPRESSION Right PICC terminates in the SVC. Dictated by... Umberto Zapata M.D. THIS IS AN ELECTRONICALLY VERIFIED REPORT Umberto Zapata M.D. at 12/12/2016 1:04 AM ANURADHA/millie TD: 12/11/2016 14:53 JOB #: [id number] [facility] A Service [facility] RADIOLOGY TEXT RESULTS PATIENT: ALVARO GUNN LOCATION: [facility]07-18 : 34 UNIT #: [id number] AGE: [address]: Byron Holly MD SEX: F ORDER DR: MEDICAL IMAGING REPORT Page 1 of 1 COPY
--- NOTE | ~2016-12-10 | CT57 ---
[facility] A Service of [facility] RADIOLOGY TEXT RESULTS PATIENT: ALVARO GUNN LOCATION: [facility] 574-01 : 34 UNIT #: [id number] AGE: [address]: Byron Holly MD SEX: F ORDER DR: [id number] [facility] [address] [place], [place] [address] [id number] I MR#: [id number] Acc #: [id number] NAME: ALVARO GUNN : 1935 SEX: F STUDY DATE/TIME: 12/12/2016 14:36 UNIT: [facility] ROOM: [facility] STUDY DESCRIPTION: CT Chest Wo Cont Attending Physician: Byron Holly M.D. Ordering Physician: Zion Mccartney M.D. Primary Care Physician: Estrellita Coker M.D. MEDICAL IMAGING REPORT This report is preliminary unless electronic signature is present EXAM CT chest without contrast HISTORY Shortness of air for [address] exam was performed with one or more of the following radiation dose reduction techniques: automatic exposure control, adjustment of mA and/or kV according to patient size, and iterative reconstruction. FINDINGS CT chest without contrast demonstrates nearly complete atelectasis of the left lower lobe and partial minimal residual aeration of the superior segment left lower lobe. There is extensive atelectasis of the mid and inferior right lower lobe and partial residual aeration of the superior segment of the right lower lobe. These findings have progressed compared to CT chest 09/16/2015. There are small to moderate-sized bilateral pleural effusions, slightly larger than on the prior CT. There is also mild atelectasis in the posterolateral left upper lobe. Interval near complete clearing of subsegmental atelectasis in the posterior right upper lobe. Interval resolution of mild right paratracheal adenopathy since the prior CT. Stable mildly enlarged lymph node anterior to the right mainstem bronchus measuring 0.3 cm. Moderate multi-chamber cardiac enlargement. Mitral valve and tricuspid valve replacement. IMPRESSION 1. Compared to CT 09/16/2015 there has been progressive and extensive bilateral lower lobe atelectasis, nearly complete on the left and moderately extensive on the right. 2. Small to moderate-sized bilateral pleural effusions have increased. 3. Interval partial clearing of mild subsegmental atelectasis in the posterior right upper lobe. 4. No new infiltrates in the remainder of the lungs. [facility] A Service of [facility] RADIOLOGY TEXT RESULTS PATIENT: ALVARO GUNN LOCATION: [facility] 574- : 34 UNIT #: [id number] AGE: [address]: Byron Holly MD SEX: F ORDER DR: 5. Interval resolution of mild right paratracheal adenopathy and stable mild adenopathy anterior to the right mainstem bronchus. Dictated by... Red Leach M.D. THIS IS AN ELECTRONICALLY VERIFIED REPORT Red Leach M.D. at 12/13/2016 5:34 PM LENNOX/bel TD: 12/13/2016 02:38 JOB #: [id number] MEDICAL IMAGING REPORT Page 1 of 1 COPY
--- NOTE | ~2016-12-10 | CR72 ---
[facility] A Service of [facility] RADIOLOGY TEXT RESULTS PATIENT: ALVARO GUNN LOCATION: [place] [address] : 34 UNIT #: [id number] AGE: [address]: Byron Holly MD SEX: F ORDER DR: [id number] [facility] [address]. [place], [place] [address] [id number] I MR#: [id number] Acc #: [id number] NAME: ALVARO GUNN : 1935 SEX: F STUDY DATE/TIME: 12/12/2016 5:28 UNIT: [facility] ROOM: [facility] STUDY DESCRIPTION: CR Chest Single View Portable Attending Physician: Byron Holly M.D. Ordering Physician: Zion Mccartney M.D. Primary Care Physician: Estrellita Coker M.D. MEDICAL IMAGING REPORT This report is preliminary unless electronic signature is present EXAM Frontal chest INDICATIONS Volume overload and shortness of air in an 81-year-old female. Symptoms since November 23. Anemia, hypertension, atrial fibrillation. TECHNIQUE Frontal chest compared with 12/11/2016 FINDINGS Right-sided PICC line unchanged. The heart is enlarged. There is interstitial edema that appears worse than on the prior study. Interval increase in interstitial and alveolar opacities probably reflects worsening edema or potentially edema and superimposed pneumonia or ARDS. Bilateral effusions with bibasilar atelectasis or infiltrates. No pneumothorax. IMPRESSION Worsening appearance of the chest compared to 12/11/2016. This may reflect worsening pulmonary edema. STAT * RESULT Dictated by... Chapito Ritchie M.D. THIS IS AN ELECTRONICALLY VERIFIED REPORT Chapito Ritchie M.D. at 12/12/2016 8:50 AM PATRICE/aj [facility] A Service of [facility] RADIOLOGY TEXT RESULTS PATIENT: ALVARO GUNN LOCATION: [facility]2-05 : 34 UNIT #: [id number] AGE: [address]: Byron Holly MD SEX: F ORDER DR: TD: 12/12/2016 08:34 JOB #: [id number] MEDICAL IMAGING REPORT Page 1 of 1 COPY
--- NOTE | ~2016-12-10 | CR72 ---
[facility] A Service of [facility] RADIOLOGY TEXT RESULTS PATIENT: ALVARO GUNN LOCATION: [facility] 574-01 : 34 UNIT #: [id number] AGE: [address]: Byron Holly MD SEX: F ORDER DR: [id number] [facility] [address] [place], [place] [address] [id number] I MR#: [id number] Acc #: [id number] NAME: ALVARO GUNN : 1935 SEX: F STUDY DATE/TIME: 12/14/2016 8:10 UNIT: [facility] ROOM: [facility] STUDY DESCRIPTION: CR Chest Single View Portable Attending Physician: Byron Holly M.D. Ordering Physician: Byron Holly M.D. Primary Care Physician: Estrellita Coker M.D. MEDICAL IMAGING REPORT This report is preliminary unless electronic signature is present EXAM Portable chest HISTORY Shortness of air since 12/10/2016. Prior smoker. COMPARISON 12/13/2016 FINDINGS Portable view of the chest demonstrates cardiomegaly with prominence of the pulmonary vascular interstitium. Findings most likely indicative of underlying CHF. There is loss of both hemidiaphragms and blunting of the CP angles compatible with bilateral effusions. Patient is post median sternotomy and apparent CABG and valve replacement. Right upper extremity PICC line terminates lower SVC. Pacemaker noted. No pneumothorax. Overall continued findings suggesting moderate CHF. Dictated by... Shirley Dennis M.D. THIS IS AN ELECTRONICALLY VERIFIED REPORT Shirley Dennis M.D. at 12/15/2016 12:29 PM BIPIN/bel TD: 12/14/2016 22:19 JOB #: [id number] MEDICAL IMAGING REPORT Page 1 of 1 COPY
--- NOTE | ~2016-12-10 | EKG ---
PATIENT: ALVARO GUNN UNIT #: [id number] Ventricular Rate: 76 BPM Atrial Rate: 77 BPM QRS Duration: 104 ms Q-T Interval: 454 ms QTC Calculation(Bezet): 510 ms Calculated R Hawthorne: 112 degrees Calculated T Hawth[place]: -42 degrees Diagnosis Line: Accelerated Junctional rhythm Diagnosis Line: Left posterior fascicular block Diagnosis Line: ST and T wave abnormality, consider inferior Diagnosis Line: ischemia Diagnosis Line: ST and T wave abnormality, consider anterolateral Diagnosis Line: ischemia Diagnosis Line: Prolonged QT Diagnosis Line: Abnormal ECG Diagnosis Line: When compared with ECG of 08-AUG-2015 06:12, Diagnosis Line: Junctional rhythm has replaced Ventricular-paced Diagnosis Line: rhythm Diagnosis Line: Confirmed by MIKA SHERWOOD MD ([id number]) on 12/15/2016 Diagnosis Line: 2:40:26 PM INTERPRETING MD: PRESLEY CRUZ
--- NOTE | ~2016-12-10 | EKG ---
PATIENT: ALVARO GUNN UNIT #: [id number] Ventricular Rate: 81 BPM Atrial Rate: 150 BPM QRS Duration: 102 ms Q-T Interval: 430 ms QTC Calculation(Bezet): 499 ms Calculated R [place]: 118 degrees Calculated T [place]: -147 degrees Diagnosis Line: Accelerated Junctional rhythm Diagnosis Line: Left posterior fascicular block Diagnosis Line: ST and T wave abnormality, consider anterolateral Diagnosis Line: ischemia Diagnosis Line: Prolonged QT Diagnosis Line: Abnormal ECG Diagnosis Line: When compared with ECG of 10-DEC-2016 19:31, Diagnosis Line: (unconfirmed) Diagnosis Line: Nonspecific T wave abnormality has replaced Diagnosis Line: inverted T waves in Inferior leads Diagnosis Line: T wave inversion more evident in Lateral leads Diagnosis Line: Confirmed by MIKA SHERWOOD MD ([id number]) on 12/15/2016 Diagnosis Line: 2:47:14 PM INTERPRETING MD: PRESLEY CRUZ
[~2016-12-10 19:08] MED LIST changes: -AMIODARONE HCL200 MG PO; -AMIODARONE PO; -B-12 COMPL1000 MCG/1 IM; -DOCUSATE SODIU100 MG PO; -FOLIC ACID1 MG PO; -HYDROCODON-ACE1 EAC9 PO; -K-DUR20 ME1 PO; -KEFLEX500 MG PO; -MAG-OX 400400 MG PO; -MAGNESIUM400 MG PO; -METOLAZONE2.5 MG PO; -METOPROLOL SUCC25 MG PO; -MUCINEX DM ER1 EACH PO; -NITROGLYGERIN0.4 MG SL; -NITROSTAT0.4 MG SL; -SINGULAIR PO; -TESSALON PERLE100 M1 PO; -ZOLOFT100 MG PO; -ZYRTEC10 M1 PO; -ZYRTEC10 M2 PO
[2016-12-10] MEDS ORDERED: HYDROCODON-ACE1 EAC9 PO (20:09)
[2016-12-10 20:13] LABS: BASOPHIL% 0.6 % (0-2.5); EOSINOPHIL# 0.1 X10e3 (0-0.7); EOSINOPHIL% 3.2 % (0.0-7.0); HEMATOCRIT 23.9 % (35.0-45.0); HEMOGLOBIN 7.2 gm/dL (12.0-16.0); LYMPHOCYTE# 0.4 X10e3 (1.0-3.5); LYMPHOCYTE% 11.1 % (17.0-45.0); MEAN CELL VOLUME 78.9 FL (83-96); MEAN CORPUSCULAR HEMOGLOBIN 23.7 PG (28-34); MEAN PLATELET VOLUME 7.4 FL (6.5-11.5); MONOCYTE# 0.4 X10e3 (0-1.0); MONOCYTE% 11.6 % (3.0-12.0); NEUTROPHIL# 2.5 X10e3 (1.5-7.1); NEUTROPHIL% 73.5 % (40-75); PLATELET COUNT 152 X10e3 (140-420); RED BLOOD COUNT 3.03 X10e (3.90-5.30); RED CELL DISTRIBUTION WIDTH 20.1 % (11.0-15.5); WHITE BLOOD COUNT 3.5 X10e3 (4.0-10.5)
[2016-12-10] MEDS ORDERED: ZYRTEC10 M1 PO (20:13)
[2016-12-10 20:15] LABS: DIFF IND YES
[2016-12-10] MEDS ORDERED: KEFLEX500 MG PO (20:18)
[2016-12-10] MEDS ORDERED: MAG-OX 400400 MG PO (20:18)
[2016-12-10 20:19] LABS: INR 1.1; PARTIAL THROMBOPLASTIN TIME 27.1 SECONDS (23.5-31.3); PROTHROMBIN TIME (PATIENT) 12.3 SECONDS (10.0-11.7)
[2016-12-10] MEDS ORDERED: BENZONATATE PO (20:19)
[2016-12-10] MEDS ORDERED: NASONEX17 GM ×2 (20:19→21:45)
[2016-12-10] MEDS ORDERED: SINGULAIR PO ×2 (20:19→21:45)
[2016-12-10] MEDS ORDERED: NITROSTAT0.4 MG SL (20:21)
[2016-12-10 20:25] LABS: ALBUMIN SERUM 3.2 g/dL (3.5-5.0); BILIRUBIN, DIRECT 0.3 mg/dL (0.0-0.2); BILIRUBIN,INDIRECT 1.2 mg/dL (0.0-0.9); BILIRUBIN,TOTAL 1.5 mg/dL (0.2-2.0); BUN/CREATININE RATIO 28.33; CALCIUM SERUM 8.9 mg/dL (8.4-10.2); CREATININE SERUM 1.2 mg/dL (0.6-1.4); GLOM FILT RATE Estimated 42.1 mL/min (>60); POTASSIUM 3.4 mmol/L (3.5-5.1); PROTEIN TOTAL SERUM 6.1 g/dL (6.0-8.3)
[2016-12-10 20:43] LABS: PLATELET ESTIMATE NORMAL (NORMAL)
[2016-12-10 20:52] LABS: POC - CKMB <1.0 ng/mL (0.0-7.9); POC - TROPONIN <0.05 ng/mL (<=0.05)
[2016-12-10] MEDS ORDERED: ELIQUIS2.5 MG PO (21:38)
[2016-12-10] MEDS ORDERED: HYDROCODON-ACE1 EAC7 PO (21:39)
[2016-12-10] MEDS ORDERED: LIPITOR20 MG PO (21:40)
[2016-12-10] MEDS ORDERED: METOLAZONE2.5 MG PO (21:40)
[2016-12-10] MEDS ORDERED: ASPIRIN EC81 M1 PO (21:40)
[2016-12-10] MEDS ORDERED: TESSALON PERLE100 M1 PO (21:41)
[2016-12-10] MEDS ORDERED: BUMEX2 MG PO (21:41)
[2016-12-10] MEDS ORDERED: ZYRTEC10 M2 PO (21:41)
[2016-12-10] MEDS ORDERED: B-12 COMPL1000 MCG/1 IM (21:42)
[2016-12-10] MEDS ORDERED: DOCUSATE SODIU100 MG PO (21:42)
[2016-12-10] MEDS ORDERED: FOLIC ACID1 MG PO ×2 (21:43→23:59)
[2016-12-10] MEDS ORDERED: FERRO-TIME325 MG PO (21:43)
[2016-12-10] MEDS ORDERED: MAGNESIUM400 MG PO (21:44)
[2016-12-10] MEDS ORDERED: METOPROLOL SUCC25 MG PO (21:44)
[2016-12-10] MEDS ORDERED: NITROGLYGERIN0.4 MG SL (21:46)
[2016-12-10] MEDS ORDERED: MUCINEX DM ER1 EACH PO (21:47)
[2016-12-10] MEDS ORDERED: PROTONIX PO (21:47)
[2016-12-10] MEDS ORDERED: K-DUR20 ME1 PO ×2 (21:47→23:59)
[2016-12-10] MEDS ORDERED: ZOLOFT50 MG PO (21:48)
[2016-12-10 22:35] LABS: URINE SOURCE CLEAN CATCH
[2016-12-10 22:44] LABS: URINE APPEARANCE CLEAR; URINE BILIRUBIN NEG (NEG); URINE BLOOD NEG (NEG); URINE COLOR YELLOW; URINE GLUCOSE NEG (NEG); URINE KETONE TRACE (NEG); URINE LEUKOCYTE ESTERASE NEG (NEG); URINE NITRATE NEG (NEG); URINE PH 6.5 (5-8); URINE PROTEIN NEG (NEG); URINE SPECIFIC GRAVITY 1.014 (1.003-1.035); URINE UROBILINOGEN 0.2 MG/DL (NEG)
[2016-12-11 04:47] LABS: BASOPHIL% 0.6 % (0-2.5); EOSINOPHIL# 0.1 X10e3 (0-0.7); EOSINOPHIL% 1.6 % (0.0-7.0); HEMATOCRIT 23.9 % (35.0-45.0); HEMOGLOBIN 7.1 gm/dL (12.0-16.0); LYMPHOCYTE# 0.3 X10e3 (1.0-3.5); LYMPHOCYTE% 7.2 % (17.0-45.0); MEAN CELL VOLUME 78.7 FL (83-96); MEAN CORPUSCULAR HEMOGLOBIN 23.3 PG (28-34); MEAN CORPUSCULAR HGB CONC 29.6 g/dL (30-36); MONOCYTE# 0.4 X10e3 (0-1.0); MONOCYTE% 10.4 % (3.0-12.0); NEUTROPHIL# 3.4 X10e3 (1.5-7.1); NEUTROPHIL% 80.2 % (40-75); PLATELET COUNT 103 X10e3 (140-420); RED BLOOD COUNT 3.04 X10e (3.90-5.30); RED CELL DISTRIBUTION WIDTH 19.8 % (11.0-15.5); WHITE BLOOD COUNT 4.3 X10e3 (4.0-10.5)
[2016-12-11 04:49] LABS: DIFF IND YES
[2016-12-11 05:14] LABS: HYPOCHROMIA SL; OVALOCYTES PRESENT; PLATELET ESTIMATE DECREASED (NORMAL)
[2016-12-11 05:15] LABS: TEAR DROP CELLS PRESENT
[2016-12-11 05:39] LABS: BUN/CREATININE RATIO 25.38; CALCIUM SERUM 8.8 mg/dL (8.4-10.2); CREATININE SERUM 1.3 mg/dL (0.6-1.4); GLOM FILT RATE Estimated 38.2 mL/min (>60); POTASSIUM 3.6 mmol/L (3.5-5.1)
[2016-12-12 03:51] LABS: ARTERIAL BLD GAS O2 SATURATION 94.1 % (90.0-100.0); ARTERIAL BLOOD GAS CARBOXY HB 1.6 %sat (0.0-9.0); ARTERIAL BLOOD GAS HCO3 40.8 mmol/L; ARTERIAL BLOOD GAS MET HB 1.4 %sat (0.0-2.0); ARTERIAL BLOOD GAS PO2 80.9 mmHg (80.0-100); ARTERIAL BLOOD GAS pH 7.421 (7.350-7.450)
[2016-12-12 04:07] LABS: ARTERIAL BLOOD GAS PCO2 62.8 mmHg (35.0-45.0)
[2016-12-12 04:08] LABS: ARTERIAL BLOOD GAS ALLEN TEST NORMAL; ARTERIAL BLOOD GAS ART SITE LEFT RADIAL; ARTERIAL BLOOD GAS DELIVERY OXYMIZER; ARTERIAL DRAW? YES
[2016-12-12 05:53] LABS: ALBUMIN SERUM 3.2 g/dL (3.5-5.0); BILIRUBIN,TOTAL 1.2 mg/dL (0.2-2.0); BUN/CREATININE RATIO 25.45; CALCIUM SERUM 8.9 mg/dL (8.4-10.2); CREATININE SERUM 1.1 mg/dL (0.6-1.4); GLOM FILT RATE Estimated 46.7 mL/min (>60); MAGNESIUM 1.8 mg/dL (1.6-3.0); POTASSIUM 3.4 mmol/L (3.5-5.1); PROTEIN TOTAL SERUM 5.9 g/dL (6.0-8.3)
[2016-12-12 07:29] LABS: BASOPHIL% 0.7 % (0-2.5); EOSINOPHIL# 0.1 X10e3 (0-0.7); EOSINOPHIL% 3.3 % (0.0-7.0); HEMATOCRIT 29.2 % (35.0-45.0); HEMOGLOBIN 8.9 gm/dL (12.0-16.0); LYMPHOCYTE# 0.3 X10e3 (1.0-3.5); LYMPHOCYTE% 7.9 % (17.0-45.0); MEAN CELL VOLUME 81.3 FL (83-96); MEAN CORPUSCULAR HEMOGLOBIN 24.7 PG (28-34); MEAN CORPUSCULAR HGB CONC 30.4 g/dL (30-36); MEAN PLATELET VOLUME 8.3 FL (6.5-11.5); MONOCYTE# 0.6 X10e3 (0-1.0); MONOCYTE% 14.5 % (3.0-12.0); NEUTROPHIL# 3.2 X10e3 (1.5-7.1); NEUTROPHIL% 73.6 % (40-75); PLATELET COUNT 143 X10e3 (140-420); RED BLOOD COUNT 3.59 X10e (3.90-5.30); RED CELL DISTRIBUTION WIDTH 19.9 % (11.0-15.5); WHITE BLOOD COUNT 4.4 X10e3 (4.0-10.5)
[2016-12-12 07:41] LABS: DIFF IND NO
[2016-12-13 04:35] LABS: ARTERIAL BLD GAS O2 SATURATION 94.5 % (90.0-100.0); ARTERIAL BLOOD GAS CARBOXY HB 1.7 %sat (0.0-9.0); ARTERIAL BLOOD GAS HCO3 46.1 mmol/L; ARTERIAL BLOOD GAS MET HB 1.2 %sat (0.0-2.0); ARTERIAL BLOOD GAS PO2 80.1 mmHg (80.0-100); ARTERIAL BLOOD GAS pH 7.404 (7.350-7.450)
[2016-12-13 04:40] LABS: ARTERIAL BLOOD GAS ALLEN TEST NORMAL; ARTERIAL BLOOD GAS ART SITE RIGHT RADIAL; ARTERIAL BLOOD GAS DELIVERY OXYMIZER; ARTERIAL BLOOD GAS PCO2 73.8 mmHg (35.0-45.0); ARTERIAL DRAW? YES
[2016-12-13 05:50] LABS: BASOPHIL% 0.4 % (0-2.5); EOSINOPHIL# 0.2 X10e3 (0-0.7); EOSINOPHIL% 4.2 % (0.0-7.0); HEMATOCRIT 29.3 % (35.0-45.0); HEMOGLOBIN 8.8 gm/dL (12.0-16.0); LYMPHOCYTE# 0.5 X10e3 (1.0-3.5); LYMPHOCYTE% 11.4 % (17.0-45.0); MEAN CELL VOLUME 82.1 FL (83-96); MEAN CORPUSCULAR HEMOGLOBIN 24.6 PG (28-34); MEAN PLATELET VOLUME 8.1 FL (6.5-11.5); MONOCYTE# 0.6 X10e3 (0-1.0); NEUTROPHIL# 3.1 X10e3 (1.5-7.1); PLATELET COUNT 119 X10e3 (140-420); RED BLOOD COUNT 3.57 X10e (3.90-5.30); RED CELL DISTRIBUTION WIDTH 20.3 % (11.0-15.5); WHITE BLOOD COUNT 4.5 X10e3 (4.0-10.5)
[2016-12-13 06:04] LABS: DIFF IND NO
[2016-12-13 06:17] LABS: ALKALINE PHOSPHATASE 71 U/L (32-92); ALT (SGPT) 9 U/L (10-40); AST (SGOT) 14 U/L (10-42); BLOOD UREA NITROGEN 25 mg/dL (9-23); BUN/CREATININE RATIO 22.72; CALCIUM SERUM 8.7 mg/dL (8.4-10.2); CARBON DIOXIDE 36 mmol/L (22-31); CHLORIDE 95 mmol/L (100-111); CREATININE SERUM 1.1 mg/dL (0.6-1.4); GLOM FILT RATE Estimated 46.7 mL/min (>60); GLUCOSE FASTING 131 mg/dL (70-110); MAGNESIUM 2.1 mg/dL (1.6-3.0); POTASSIUM 4.2 mmol/L (3.5-5.1); PROTEIN TOTAL SERUM 5.9 g/dL (6.0-8.3); SODIUM 139 mmol/L (135-145)
[2016-12-13 07:18] LABS: PROCALCITONIN <0.05 NG/ML
[2016-12-13 15:29] LABS: CALCIUM SERUM 9.2 mg/dL (8.4-10.2); GLOM FILT RATE Estimated 52.4 mL/min (>60); POTASSIUM 4.4 mmol/L (3.5-5.1)
[2016-12-14 05:38] LABS: HEMATOCRIT 28.6 % (35.0-45.0); HEMOGLOBIN 8.4 gm/dL (12.0-16.0); MEAN CELL VOLUME 81.7 FL (83-96); MEAN CORPUSCULAR HEMOGLOBIN 24.1 PG (28-34); MEAN CORPUSCULAR HGB CONC 29.5 g/dL (30-36); RED BLOOD COUNT 3.5 X10e (3.90-5.30); RED CELL DISTRIBUTION WIDTH 20.8 % (11.0-15.5); WHITE BLOOD COUNT 3.8 X10e3 (4.0-10.5)
[2016-12-14 07:26] LABS: BUN/CREATININE RATIO 21.53; CALCIUM SERUM 9.2 mg/dL (8.4-10.2); CREATININE SERUM 1.3 mg/dL (0.6-1.4); GLOM FILT RATE Estimated 38.2 mL/min (>60); POTASSIUM 4.7 mmol/L (3.5-5.1)
[2016-12-15 03:46] LABS: ARTERIAL BLD GAS O2 SATURATION 90.8 % (90.0-100.0); ARTERIAL BLOOD GAS CARBOXY HB 1.6 %sat (0.0-9.0); ARTERIAL BLOOD GAS HCO3 46.1 mmol/L; ARTERIAL BLOOD GAS MET HB 1.2 %sat (0.0-2.0); ARTERIAL BLOOD GAS pH 7.463 (7.350-7.450)
[2016-12-15 03:47] LABS: ARTERIAL BLOOD GAS ART SITE RIGHT BRACHIAL; ARTERIAL BLOOD GAS DELIVERY NASAL CANNULA; ARTERIAL BLOOD GAS PCO2 64.4 mmHg (35.0-45.0); ARTERIAL BLOOD GAS PO2 61.7 mmHg (80.0-100); ARTERIAL DRAW? YES
[2016-12-15 05:32] LABS: HEMATOCRIT 27.7 % (35.0-45.0); HEMOGLOBIN 8.4 gm/dL (12.0-16.0); MEAN CELL VOLUME 81.2 FL (83-96); MEAN CORPUSCULAR HEMOGLOBIN 24.6 PG (28-34); MEAN CORPUSCULAR HGB CONC 30.3 g/dL (30-36); MEAN PLATELET VOLUME 7.7 FL (6.5-11.5); RED BLOOD COUNT 3.41 X10e (3.90-5.30); RED CELL DISTRIBUTION WIDTH 21.1 % (11.0-15.5); WHITE BLOOD COUNT 3.8 X10e3 (4.0-10.5)
[2016-12-15 06:58] LABS: ALBUMIN SERUM 2.9 g/dL (3.5-5.0); BILIRUBIN,TOTAL 0.9 mg/dL (0.2-2.0); BUN/CREATININE RATIO 28.33; CALCIUM SERUM 9.1 mg/dL (8.4-10.2); CREATININE SERUM 1.2 mg/dL (0.6-1.4); GLOM FILT RATE Estimated 42.1 mL/min (>60); MAGNESIUM 2.2 mg/dL (1.6-3.0); PHOSPHOROUS 4.3 mg/dL (2.5-4.6); POTASSIUM 4.9 mmol/L (3.5-5.1); PROTEIN TOTAL SERUM 5.6 g/dL (6.0-8.3)
[2016-12-16 06:52] LABS: HEMATOCRIT 28.8 % (35.0-45.0); HEMOGLOBIN 8.6 gm/dL (12.0-16.0); MEAN CELL VOLUME 81.3 FL (83-96); MEAN CORPUSCULAR HEMOGLOBIN 24.4 PG (28-34); MEAN PLATELET VOLUME 8.1 FL (6.5-11.5); RED BLOOD COUNT 3.54 X10e (3.90-5.30); RED CELL DISTRIBUTION WIDTH 21.5 % (11.0-15.5); WHITE BLOOD COUNT 4.2 X10e3 (4.0-10.5)
[2016-12-16 08:08] LABS: BILIRUBIN,TOTAL 0.8 mg/dL (0.2-2.0); BUN/CREATININE RATIO 26.66; CREATININE SERUM 1.5 mg/dL (0.6-1.4); GLOM FILT RATE Estimated 32.1 mL/min (>60); POTASSIUM 4.8 mmol/L (3.5-5.1); PROTEIN TOTAL SERUM 5.9 g/dL (6.0-8.3)
[2016-12-17 06:10] LABS: HEMATOCRIT 27.8 % (35.0-45.0); HEMOGLOBIN 8.4 gm/dL (12.0-16.0); MEAN CELL VOLUME 80.8 FL (83-96); MEAN CORPUSCULAR HEMOGLOBIN 24.3 PG (28-34); MEAN CORPUSCULAR HGB CONC 30.1 g/dL (30-36); MEAN PLATELET VOLUME 7.8 FL (6.5-11.5); RED BLOOD COUNT 3.44 X10e (3.90-5.30); RED CELL DISTRIBUTION WIDTH 21.6 % (11.0-15.5); WHITE BLOOD COUNT 3.8 X10e3 (4.0-10.5)
[2016-12-17 06:59] LABS: BUN/CREATININE RATIO 27.22; CALCIUM SERUM 8.9 mg/dL (8.4-10.2); CREATININE SERUM 1.8 mg/dL (0.6-1.4); GLOM FILT RATE Estimated 25.8 mL/min (>60); MAGNESIUM 2.3 mg/dL (1.6-3.0); POTASSIUM 4.3 mmol/L (3.5-5.1)
[2016-12-18 05:19] LABS: HEMOGLOBIN 8.4 gm/dL (12.0-16.0); MEAN CELL VOLUME 80.7 FL (83-96); MEAN CORPUSCULAR HEMOGLOBIN 24.2 PG (28-34); MEAN PLATELET VOLUME 8.3 FL (6.5-11.5); RED BLOOD COUNT 3.47 X10e (3.90-5.30); RED CELL DISTRIBUTION WIDTH 21.8 % (11.0-15.5)
[2016-12-18 05:54] LABS: BUN/CREATININE RATIO 30.58; CALCIUM SERUM 8.8 mg/dL (8.4-10.2); CREATININE SERUM 1.7 mg/dL (0.6-1.4); GLOM FILT RATE Estimated 27.6 mL/min (>60); MAGNESIUM 2.5 mg/dL (1.6-3.0); PHOSPHOROUS 3.8 mg/dL (2.5-4.6); POTASSIUM 3.9 mmol/L (3.5-5.1)
[2016-12-18] MEDS ORDERED: AMIODARONE HCL200 MG PO (09:45)
[2016-12-18] MEDS ORDERED: ZOLOFT100 MG PO (09:47)
[2016-12-18] MEDS ORDERED: AMIODARONE PO (09:48)
== END 2016-12-18 14:52 | disposition home health service (06) | DRG 291 ==
LOC: CED 19:08 → CEDOF 21:45 → C5C 21:45 → CEDOF 22:40 → CED 22:40 → CICCU2 12-11 03:00 → CEDOF 12-11 03:00 → CICCU2 12-11 05:11 → C5C 12-12 16:20
PROVIDERS: Emergency Medicine; Family Medicine; Internal Medicine; Specialist
PROC: 02HV33Z Insertion of Infusion Device into Superior Vena Cava, Percutaneous Approach (ICD-10-PCS; 2016-12-10)
PROC: 30243N1 Transfusion of Nonautologous Red Blood Cells into Central Vein, Percutaneous Approach (ICD-10-PCS; principal; 2016-12-11)
PROC: B24BZZZ Ultrasonography of Heart with Aorta (ICD-10-PCS; 2016-12-11)
DX: I13.0 Hypertensive heart and chronic kidney disease with heart failure and stage 1 through stage 4 chronic kidney disease, or unspecified chronic kidney disease (principal); I50.33 Acute on chronic diastolic (congestive) heart failure; J96.21 Acute and chronic respiratory failure with hypoxia; N17.9 Acute kidney failure, unspecified; I27.2 Other secondary pulmonary hypertension; D46.9 Myelodysplastic syndrome, unspecified; K21.9 Gastro-esophageal reflux disease without esophagitis; N18.3 Chronic kidney disease, stage 3 (moderate); R62.7 Adult failure to thrive; J44.9 Chronic obstructive pulmonary disease, unspecified; I48.0 Paroxysmal atrial fibrillation; Z79.01 Long term (current) use of anticoagulants; I25.10 Atherosclerotic heart disease of native coronary artery without angina pectoris; Z95.1 Presence of aortocoronary bypass graft; Z95.0 Presence of cardiac pacemaker; M19.90 Unspecified osteoarthritis, unspecified site; G89.29 Other chronic pain; F41.9 Anxiety disorder, unspecified; F32.9 Major depressive disorder, single episode, unspecified; E78.5 Hyperlipidemia, unspecified; I07.1 Rheumatic tricuspid insufficiency; Z90.49 Acquired absence of other specified parts of digestive tract; Z90.710 Acquired absence of both cervix and uterus; Z96.653 Presence of artificial knee joint, bilateral; Z82.49 Family history of ischemic heart disease and other diseases of the circulatory system; Z88.5 Allergy status to narcotic agent; Z79.82 Long term (current) use of aspirin; Z99.81 Dependence on supplemental oxygen
CPT/HCPCS: 36600; 51702; 71010; 71020; 71250; 80048; 80053; 80061; 80076; 81003; 82308; 82553; 82803; 83036; 83735; 83880; 84100; 84443; 84484; 85025; 85027; 85610; 85730; 86850; 86885; 86900; 86901; 86922; 93005; 93306; 94640; 94660; 94760; 94761; 96374; 97110; 97116; 97162; 97166; 97530; 97535; 99291; G8978-GP; G8979-GP; G8987-GO; G8988-GO; G8989-GO; J3420; J3475; P9016

== ENCOUNTER → 2017-01-03 | Outpatient (CLI) | payer OTHER ==
[~2017-01-03] MED LIST changes: +AMIODARONE HCL200 MG PO; +AMIODARONE PO; +B-12 COMPL1000 MCG/1 IM; +DOCUSATE SODIU100 MG PO; +FOLIC ACID1 MG PO; +HYDROCODON-ACE1 EAC9 PO; +K-DUR20 ME1 PO; +KEFLEX500 MG PO; +MAG-OX 400400 MG PO; +MAGNESIUM400 MG PO; +METOLAZONE2.5 MG PO; +METOPROLOL SUCC25 MG PO; +MUCINEX DM ER1 EACH PO; +NITROGLYGERIN0.4 MG SL; +NITROSTAT0.4 MG SL; +SINGULAIR PO; +TESSALON PERLE100 M1 PO; +ZOLOFT100 MG PO; +ZYRTEC10 M1 PO; +ZYRTEC10 M2 PO
== END | disposition home or self-care (01) ==
LOC: CSSDAY 10:47
DX: N18.3 Chronic kidney disease, stage 3 (moderate) (principal); D63.1 Anemia in chronic kidney disease; Z79.899 Other long term (current) drug therapy
CPT/HCPCS: 96374; Q0138

== ENCOUNTER → 2017-01-10 | Outpatient (CLI) | payer OTHER | END | disposition home or self-care (01) | LOC: CSSDAY 11:07 | DX: D64.9 Anemia, unspecified (principal); Z79.899 Other long term (current) drug therapy | CPT/HCPCS: 96374; Q0138 ==

== ENCOUNTER → 2017-01-18 | Outpatient (CLI) | payer OTHER | END | disposition home or self-care (01) | LOC: CLAB 16:52 | DX: R58 Hemorrhage, not elsewhere classified (principal) | CPT/HCPCS: 36415; 86850; 86870; 86880; 86885; 86886; 86900; 86901; 86922; 86970; 86976 ==

== ENCOUNTER → 2017-01-19 | Outpatient (CLI) | payer OTHER | END | disposition home or self-care (01) | LOC: CSSDAY 08:00 | DX: N18.3 Chronic kidney disease, stage 3 (moderate) (principal); D63.1 Anemia in chronic kidney disease | CPT/HCPCS: 36430; J1200; J1940; P9016 ==